=== PATIENT | male | born 1935 | race Two or more races ===

== ENCOUNTER 2017-10-15 16:28 | Inpatient (IN) | payer MEDICARE, OTHER ==
[~2017-10-15] VITALS: Ht 167.6 cm; Wt 90.7 kg
--- NOTE | 2017-10-15 16:45 | NUR ---
BBPA FROM [facility]: ABDOMINAL WALL AND RIGHT ELBOW CELLULITIS. NOTED RASHES ON LOWER EXTREMITIES AND TORSO. PT C/O OF ALL OVER ITCHINESS. SEEN BY MD FOR EVAL. PT AAXO3. SAFETY AND COMFORT MEASURES PROVIDED. WILL MONITOR.
--- NOTE | 2017-10-15 17:10 | NUR ---
IV ACCESS STARTED.
[2017-10-15 17:21] LABS: BASOPHILS % (AUTO) 0.4 % (0.0-2.0); EOSINOPHILS % (AUTO) 8.7 % (0.0-6.0); HEMATOCRIT 40 % (39-51); HEMOGLOBIN 13.2 g/dL (13.5-17.5); LYMPHOCYTES # (AUTO) 1.1 /CMM (0.8-4.8); LYMPHOCYTES % (AUTO) 17.5 % (20.0-44.0); MEAN CORPUSCULAR HEMOGLOBIN 32 PG (26.0-33.0); MEAN CORPUSCULAR HGB CONC 33 g/dl (31.0-36.0); MEAN CORPUSCULAR VOLUME 98 fL (80-96); MONOCYTES # (AUTO) 0.8 /CMM (0.1-1.30); MONOCYTES % (AUTO) 12.1 % (2.0-12.0); NEUTROPHILS # (AUTO) 3.9 /CMM (1.8-8.9); NEUTROPHILS % (AUTO) 61.3 % (43.0-81.0); PLATELET COUNT (AUTO) 92 /CMM (150-450); RDW COEFFICIENT OF VARIATION 14.4 (11.5-15.0); RED BLOOD CELL COUNT(AUTO) 4.09 MIL/uL (4.5-6.0); WHITE BLOOD COUNT (AUTO) 6.4 K/uL (4.3-11.0)
[2017-10-15 17:48] LABS: BAND % (MANUAL) 1 % (0.0-5.0); EOSINOPHILS % (MANUAL) 12 % (0-4); LYMPHOCYTES % (MANUAL) 23 % (16-48); MONOCYTES % (MANUAL) 10 % (0-11.0); NEUTROPHILS % (MANUAL) 54 (42-76)
--- NOTE | 2017-10-15 18:05 | NUR ---
URINE SAMPLE OBTAINED AND SENT.
[2017-10-15 18:14] LABS: ALANINE AMINOTRANSFERASE 27 U/L (12-78); ALBUMIN 2.5 g/dL (3.4-5.0); ALKALINE PHOSPHATASE 198 U/L (46-116); ASPARTATE AMINOTRANSFERASE 30 U/L (15-37); BILIRUBIN,DIRECT 0.2 mg/dL (0.0-0.2); BILIRUBIN,TOTAL 0.5 mg/dL (0.2-1.0); CALCIUM, SERUM 8.5 mg/dL (8.5-10.1); CARBON DIOXIDE 27 mmol/L (21-32); CHLORIDE 105 mmol/L (98-107); CREATININE 1.3 mg/dL (0.6-1.3); GLUCOSE 164 mg/dL (74-106); POTASSIUM 3.9 mmol/L (3.5-5.1); SODIUM SERUM 137 mmol/L (136-145); UREA NITROGEN, BLOOD 19 mg/dL (7-18)
[2017-10-15 18:19] LABS: APPEARANCE,URINE SL CLOUDY (CLEAR); BILIRUBIN,URINE NEGATIVE (NEGATIVE); BLOOD, URINE NEGATIVE Ery/uL (NEGATIVE); COLOR,URINE YELLOW (YELLOW); KETONES,URINE TRACE (NEGATIVE); LEUKOCYTE ESTERASE ,URINE NEGATIVE (NEGATIVE); NITRITE, URINE NEGATIVE (NEGATIVE); PROTEIN,URINE NEGATIVE (NEGATIVE); UGLUCOSE NEGATIVE (NEGATIVE)
[2017-10-15 18:28] LABS: RBC,URINE 0-2 /HPF (0-2); SQUAMOUS EPITHELIAL CELL,UR Rare /HPF (None Seen); WBC,URINE 0-2 /HPF (0-3)
[2017-10-15 18:29] LABS: BACTERIA,URINE None seen /HPF (None Seen)
[2017-10-15] MEDS ORDERED: cetrizine 10 MG TABLET PO ONE (18:30)
[2017-10-15] MEDS ORDERED: cetrizine 10 MG TABLET ONE (18:35)
--- NOTE | 2017-10-15 19:13 | NUR ---
BED 202
--- NOTE | 2017-10-15 19:14 | NUR ---
Recieved report from RANDALL Fox. Pt. stable condition. nad. will continue to monitor. safety measures in place. call light within reach.
--- NOTE | 2017-10-15 19:37 | NUR ---
REPORT GIVEN TO GORGE LOPEZ.
--- NOTE | 2017-10-15 19:39 | NUR ---
PT TRANSP. BY EMT. STABLE CONDITION. AA/OX4. NAD. VSS.
[2017-10-15 20:00] VITALS: BP 166/72
--- NOTE | 2017-10-15 20:00 | NUR ---
MS RN NOTES ADMITTED FROM ER THIS 82 YO MALE,A RESIDENT OF [facility],ALERT,ORIENTED X3,SPEAK [place] ONLY,UNDER THE SERVICE OF [facility].ADMITTED FOR PRURITUS,GENERALIZED IN NATURE.WITH SALINE LOC LEFT AC INTACT AND PATENT.NOTED MULTIPLE SKIN DISCOLORATION ON HIS BODY,RASHES ON ABDOMEN,LEFT INNER THIGH AND BACK.PER FACILITY,PATIENT IS AMBULATORY AND EAT REGULAR FOOD.NO HX OF ASPIRATION.FALL PRECAUTION OBSERVED.BED ON LOWEST POSITION AND LOCKED,SIDE RAIL UP X2,CALL LIGHT IN REACH,NEEDS ANTICIPATED.
[2017-10-15 20:45] VITALS: BP 166/72
[2017-10-15] MEDS ORDERED: [UNRECOGNIZED DRUG - OTHER] (21:30)
[2017-10-15] MEDS ORDERED: OMEG1CAP55 PO (21:30)
[2017-10-15] MEDS ORDERED: LACT10SO PO (21:30)
[2017-10-15] MEDS ORDERED: FURO-145 PO (21:30)
[2017-10-15] MEDS ORDERED: PANT40TA2 PO (21:30)
[2017-10-15] MEDS ORDERED: CARV6.25 PO (21:30)
[2017-10-15] MEDS ORDERED: TIOT18CA3 INH (21:30)
[2017-10-15] MEDS ORDERED: MAGNESIUM HYDROXIDE 30 ML UDC PO PRN (22:30)
[2017-10-15] MEDS ORDERED: ZOLPIDEM TARTRATE 5 MG TABLET PO PRN (22:30)
[2017-10-15] MEDS ORDERED: HYDROCODONE/APAP 5/325MG 1 EACH TABLET PO PRN (22:30)
[2017-10-15] MEDS ORDERED: Z GUARD REMEDY 2 OZ OINT TP PRN (22:30)
[2017-10-15] MEDS ORDERED: ACETAMINOPHEN 325 MG TABLET PO PRN (22:30)
[2017-10-15] MEDS ORDERED: LACTULOSE 10 G/15 ML UDC (PYXIS) PO PRN (22:30)
[2017-10-15] MEDS ORDERED: ONDANSETRON HCL/PF 4 MG/2 ML VIAL IVP PRN (22:30)
[2017-10-15] MEDS ORDERED: ENOXAPARIN SODIUM 40 MG/0.4 ML DISP.SYRIN SQ SCH (22:30)
[2017-10-15] MEDS: FAMOTIDINE/PF INJ 20 MG/2 ML VIAL IV SCH (22:45)
[2017-10-15] MEDS: diphenhydrAMINE HCL 50 MG/ML VIAL IV SCH (22:45)
--- NOTE | 2017-10-15 22:45 | NUR ---
MS RN NOTES STARTED ON BENADRYL 25MG IV FOR ITCHINESS AND PEPCID 20MG IV HISTAMINE ANTAGONIST
--- NOTE | 2017-10-15 22:46 | NUR ---
MS RN NOTES STARTED ON LOVENOX 40MG SQ FOR DVT PROPHYLAXIS.
--- NOTE | 2017-10-16 02:00 | NUR ---
MS RN NOTES SLEEPING,KEPT WARM AND COMFORTABLE.
[2017-10-16] MEDS: diphenhydrAMINE HCL 50 MG/ML VIAL IV SCH ×4 (05:22→21:35)
--- NOTE | 2017-10-16 06:23 | NUR ---
MS RN NOTES SLEPT WELL WITH BENADRYL,KEPT WARM AND COMFORTABLE.A/O X2-3,IN NO ACUTE DISTRESS.WILL ENDORSE TO NILSA PEREIRA FOR KIT.
--- NOTE | 2017-10-16 07:16 | NUR ---
MS RN OPENING NOTES RECEIVED PT AWAKE IN BED IN NO ACUTE SIGNS OF DISTRESS. HOB ELEVATED. A/O X3. MALTESE SPEAKING, DENIES ANY PAIN OR DISCOMFORTS AT THIS TIME. ON ROOM AIR, BREATHING EVEN AND UNLABORED. IV ACCESS ON LEFT AC INTACT AND PATENT. MULTIPLE SKIN DISCOLORATION ON BODY, RASHES ON ABDOMEN, LEFT INNER THIGH AND BACK PERSIST. SAFET MEASURES IN PLACE. BED ON LOWEST POSITION AND LOCKED, SIDE-RAILS UP X2. CALL LIGHT IN REACH. WILL CONTINUE TO MONITOR PT ACCORDINGLY.
[2017-10-16 08:00] VITALS: BP 140/64
[2017-10-16 08:14] LABS: BASOPHILS % (AUTO) 0.5 % (0.0-2.0); EOSINOPHILS % (AUTO) 10.6 % (0.0-6.0); HEMATOCRIT 38 % (39-51); HEMOGLOBIN 12.5 g/dL (13.5-17.5); LYMPHOCYTES # (AUTO) 1.2 /CMM (0.8-4.8); LYMPHOCYTES % (AUTO) 24.6 % (20.0-44.0); MEAN CORPUSCULAR HEMOGLOBIN 33 PG (26.0-33.0); MEAN CORPUSCULAR HGB CONC 33 g/dl (31.0-36.0); MEAN CORPUSCULAR VOLUME 98 fL (80-96); MONOCYTES # (AUTO) 0.6 /CMM (0.1-1.30); MONOCYTES % (AUTO) 12.7 % (2.0-12.0); NEUTROPHILS # (AUTO) 2.6 /CMM (1.8-8.9); NEUTROPHILS % (AUTO) 51.6 % (43.0-81.0); PLATELET COUNT (AUTO) 73 /CMM (150-450); RDW COEFFICIENT OF VARIATION 14.3 (11.5-15.0); RED BLOOD CELL COUNT(AUTO) 3.84 MIL/uL (4.5-6.0)
[2017-10-16 08:29] LABS: CALCIUM, SERUM 8.5 mg/dL (8.5-10.1); CARBON DIOXIDE 24 mmol/L (21-32); CHLORIDE 108 mmol/L (98-107); GLUCOSE 84 mg/dL (74-106); MAGNESIUM 2.3 mg/dL (1.8-2.4); PHOSPHORUS 3.7 mg/dL (2.5-4.9); POTASSIUM 4.1 mmol/L (3.5-5.1); SODIUM SERUM 140 mmol/L (136-145); UREA NITROGEN, BLOOD 18 mg/dL (7-18)
--- NOTE | 2017-10-16 08:31 | NUR ---
WOUND CARE CONSULT WOUND CARE RECEIVED CONSULT FOR MULTIPLE RASHES. WOUND CARE WILL DEFER THIS TO PRIMARY MEDICAL TEAM AT THIS TIME. PATIENT WITH CURRENT VANESSA AT 19. DISCUSSED WITH NURSING STAFF. WILL SEE PRN.
[2017-10-16] MEDS: MULTIVITAMINS,THERAGRAN 1 UDTAB TABLET PO SCH (08:56)
[2017-10-16] MEDS: PANTOPRAZOLE 40 MG TABLET.DR PO SCH (08:56)
[2017-10-16] MEDS: FAMOTIDINE/PF INJ 20 MG/2 ML VIAL IV SCH ×2 (08:56→21:35)
[2017-10-16] MEDS: FUROSEMIDE 20 MG TABLET PO SCH ×2 (08:56→17:45)
[2017-10-16] MEDS: CARVEDILOL 6.25 MG TABLET PO SCH ×2 (08:57→21:36)
[2017-10-16 09:50] LABS: CHOLESTEROL 231 mg/dL (<200); HDL CHOLESTEROL 53 mg/dL (40-60); LDL 159 mg/dL (0-99); TRIGLYCERIDES 67 mg/dL (30-150)
[2017-10-16 10:29] LABS: LYMPHOCYTES % (MANUAL) 28 % (16-48); MONOCYTES % (MANUAL) 11 % (0-11.0); NEUTROPHILS % (MANUAL) 53 (42-76)
[2017-10-16 10:30] LABS: EOSINOPHILS % (MANUAL) 8 % (0-4)
[2017-10-16] MEDS: methylPREDNISolone SOD SUCC 40 MG/ML VIAL IV SCH (11:32)
--- NOTE | 2017-10-16 11:38 | NUR ---
RN NOTES PATIENT SEEN AND EVALUATED BY DR IQBAL, ORDER TO GIVE SOLOMEDROL 40MG IV, DC LOVENOX FOR NOW, TO PUT B/L SCD ON PT'S BLE AND BLOOD WORKS TOMORROW. WILL CONTINUE TO MONITOR.
--- NOTE | 2017-10-16 11:39 | NUR ---
RN NOTES BRIDAL SALES CONSULTANT ESTELA AGUERO CAME AND ASSESSED PT'S SKIN. NO ORDER MADE AT THIS TIME.
[2017-10-16 16:00] VITALS: BP 138/69
--- NOTE | 2017-10-16 18:27 | NUR ---
MS RN CLOSING NOTES PATIENT AWAKE AND RESTING IN BED AT MODERATE HIGH BACKREST POSITION. A/O X3. [place] SPEAKING. PLEASANT AND COMPLIANT. PT TOLERATING ROOM AIR WITH NO SOB NOTED. IV ACCESS ON LEFT AC INTACT AND PATENT, FLUSHES WELL. MULTIPLE SKIN DISCOLORATION ON BODY, RASHES ON ABDOMEN, LEFT INNER THIGH AND BACK PERSIST. ALL SAFETY MEASURES KEPT IN PLACE. BED ON LOWEST POSITION AND LOCKED, SIDE-RAILS UP X2. CALL LIGHT IN REACH. ALL NEEDS AND CARE ATTENDED WELL. WILL ENDORSE TO [facility] NURSE FOR KIT.
--- NOTE | 2017-10-16 19:22 | NUR ---
RN NOTES I WAS CALLED BY PHARMACY INFORMATICS MANAGER ASSIGNED TO PT THAT PT'S IV ACCESS ON LEFT AC WITH SMALL AMOUNT OF BLOOD LEAKING. TRIED TO INSERT LINE AT LEFT FOREARM BUT SOON I INSERT THE NEEDLE, PT WENT BRUISE ABOUT 10CM X 7CM WITHOUT ACTIVE BLEEDING. TOOK PHOTO AND FILED ON CHART. DR IQBAL MADE AWARE AND ASKED WHETHER PT IS ON BLOOD THINNER, I SAID THAT LOVENOX WAS DC'D THIS MORNING. NO NEW ORDER MADE AT THIS TIME. WILL CONTINUE TO MONITOR
--- NOTE | 2017-10-16 19:50 | NUR ---
RN OPENING NOTES RECEIVED REPORT FROM NILSA DAVENPORT RN. FOUND Pt AWAKE, RESTING IN BED, WITH NO S/S OF ACUTE DISTRESS OR SOB NOTED. Pt IS A/OX3, GUINEAN SPEAKING. IV ACCESS ON LAC #20G, SL. ISSAC ASH ATTEMPTED TO START A NEW IV ON Pt's LT ARM, BUT Pt's ARM STARTED TO SHOW S/S OF HEMATOMA. RANDALL ASH STOPPED ATTEMPT, & NOTIFIED DR. IQBAL. IS AWARE; LOVENOX IS D/C'd AND WILL CONTINUE TO MONITOR Pt's ARM. PICTURES TAKEN AND PLACED IN CHART. SAFETY MEASURES IN PLACE. BED LOW, LOCKED, HOB ELEVATED, SIDE RAILS UP, CALL LIGHT AND BEDSIDE TABLE WITHIN REACH. WILL CONTINUE TO MONITOR Pt THROUGHOUT THE NIGHT FOR SAFETY.
[2017-10-16 20:00] VITALS: BP 122/54
[2017-10-16] MEDS ORDERED: ENOXAPARIN SODIUM 40 MG/0.4 ML DISP.SYRIN SQ SCH (21:00)
[2017-10-17] MEDS: diphenhydrAMINE HCL 50 MG/ML VIAL IV SCH ×4 (05:27→22:09)
[2017-10-17 06:04] LABS: BASOPHILS % (AUTO) 0.2 % (0.0-2.0); EOSINOPHILS % (AUTO) 0.1 % (0.0-6.0); HEMATOCRIT 38 % (39-51); HEMOGLOBIN 12.4 g/dL (13.5-17.5); LYMPHOCYTES # (AUTO) 0.7 /CMM (0.8-4.8); LYMPHOCYTES % (AUTO) 10.5 % (20.0-44.0); MEAN CORPUSCULAR HEMOGLOBIN 32 PG (26.0-33.0); MEAN CORPUSCULAR HGB CONC 33 g/dl (31.0-36.0); MEAN CORPUSCULAR VOLUME 97 fL (80-96); MONOCYTES # (AUTO) 0.5 /CMM (0.1-1.30); MONOCYTES % (AUTO) 8.1 % (2.0-12.0); NEUTROPHILS # (AUTO) 5.4 /CMM (1.8-8.9); NEUTROPHILS % (AUTO) 81.1 % (43.0-81.0); PLATELET COUNT (AUTO) 75 /CMM (150-450); RDW COEFFICIENT OF VARIATION 14.2 (11.5-15.0); RED BLOOD CELL COUNT(AUTO) 3.87 MIL/uL (4.5-6.0); WHITE BLOOD COUNT (AUTO) 6.7 K/uL (4.3-11.0)
[2017-10-17 06:06] LABS: GAMMA GLUTAMYL TRANSFERASE 403 U/L (5-85)
[2017-10-17 06:07] LABS: CALCIUM, SERUM 8.3 mg/dL (8.5-10.1); CARBON DIOXIDE 24 mmol/L (21-32); CHLORIDE 106 mmol/L (98-107); CREATININE 1.1 mg/dL (0.6-1.3); GLUCOSE 116 mg/dL (74-106); POTASSIUM 4.3 mmol/L (3.5-5.1); SODIUM SERUM 136 mmol/L (136-145); UREA NITROGEN, BLOOD 19 mg/dL (7-18)
--- NOTE | 2017-10-17 06:38 | NUR ---
RN CLOSING NOTES NO SIGNIFICANT CHANGES IN Pt's CONDITION. Pt REMAINS IN STABLE CONDITION AT THIS TIME. NO S/S OF ACUTE DISTRESS OR SOB NOTED DURING THE NIGHT. ALL NEEDS MET AND ATTENDED TO. SAFETY MEASURES IN PLACE. BED LOW, LOCKED, HOB ELEVATED, SIDE RAILS UP, CALL LIGHT AND BEDSIDE TABLE WITHIN REACH. WILL ENDORSE TO DAYSHIFT RN FOR Pt's KIT.
--- NOTE | 2017-10-17 07:36 | NUR ---
MS RN OPENING NOTE RECEIVED PATIENT IN BED, SLEEPING, EASILY AROUSED WITH VERBAL STIMULI, ORIENTED X3. ON ROOM AIR TOLERATING WELL. IN NO APPARENT DISTRESS OR DISCOMFORT AT THIS TIME. RESPIRATIONS EVEN AND UNLABORED. ABLE TO COMMUNICATE NEEDS. PATIENT WITH LAC #20 IVC SL. PATENT AND INTACT. PATIENT IS WITH BRP, AND DIAPER AT TIMES. ALL NEEDS ATTENDED, KEPT CLEAN AND COMFORTABLE, SAFETY MEASURES IN PLACE, BED IN LOW LOCKED POSITION, SIDE RAILS UP X2, CALL LIGHT WITHIN EASY REACH. WILL CONTINUE TO MONITOR.
[2017-10-17 07:59] VITALS: BP 140/55
[2017-10-17 08:00] VITALS: BP 140/55
[2017-10-17] MEDS: FUROSEMIDE 20 MG TABLET PO SCH ×2 (08:20→16:20)
[2017-10-17] MEDS: MULTIVITAMINS,THERAGRAN 1 UDTAB TABLET PO SCH (08:20)
[2017-10-17] MEDS: PANTOPRAZOLE 40 MG TABLET.DR PO SCH (08:20)
[2017-10-17] MEDS: CARVEDILOL 6.25 MG TABLET PO SCH ×2 (08:28→21:17)
[2017-10-17 08:52] LABS: BAND % (MANUAL) 3 % (0.0-5.0); LYMPHOCYTES % (MANUAL) 7 % (16-48); MONOCYTES % (MANUAL) 4 % (0-11.0); NEUTROPHILS % (MANUAL) 86 (42-76)
[2017-10-17] MEDS: FAMOTIDINE/PF INJ 20 MG/2 ML VIAL IV SCH ×2 (09:24→21:17)
[2017-10-17] MEDS: methylPREDNISolone SOD SUCC 40 MG/ML VIAL IV SCH (09:24)
[2017-10-17 16:00] VITALS: BP 143/57
--- NOTE | 2017-10-17 18:35 | NUR ---
MS RN CLOSING NOTE PATIENT IN BED, SLEEPING, EASILY AROUSED WITH VERBAL STIMULI, ORIENTED X3. ON ROOM AIR TOLERATING WELL. IN NO APPARENT DISTRESS OR DISCOMFORT AT THIS TIME. RESPIRATIONS EVEN AND UNLABORED. ABLE TO COMMUNICATE NEEDS IN LIB[place]. PATIENT WITH RIGHT HAND 24G. IV ACCESS, PATENT AND INTACT. PATIENT IS WITH BRP, AND DIAPER AT TIMES. STEADY WHEN AMBULATING. ALL NEEDS ATTENDED, KEPT CLEAN AND COMFORTABLE, SAFETY MEASURES IN PLACE, BED IN LOW LOCKED POSITION, SIDE RAILS UP X2, CALL LIGHT WITHIN EASY REACH, WILL ENDORSE TO PM NURSE FOR KIT.
--- NOTE | 2017-10-17 19:18 | NUR ---
ms/rn opening notes PATIENT IN BED, AWAKE, ABLE TO CHANGE POSITION AND REQUESTED FOR FOOD TO EAT, WAS NPO DUE TO PROCEDURE US OF ABDOMEN, RESULT RECEIVED,NO OBSTRUCTION, ONLY INFILTRATED FATTY LIVER, SKIN WARM TO TOUCH WITH RASHES AROUNG BODY, RESPIRATIONS EVEN AND UNLABORED, CALL LIGHTS WITHIN REACH, BED IN LOCK POSITION WILL MONITOR,
[2017-10-17 19:55] VITALS: BP 136/58
[2017-10-17 20:00] VITALS: BP 136/58
[2017-10-18] MEDS: diphenhydrAMINE HCL 50 MG/ML VIAL IV SCH ×3 (04:39→16:30)
[2017-10-18 05:44] LABS: BASOPHILS % (AUTO) 0.6 % (0.0-2.0); EOSINOPHILS % (AUTO) 0.6 % (0.0-6.0); HEMATOCRIT 37 % (39-51); HEMOGLOBIN 12.4 g/dL (13.5-17.5); LYMPHOCYTES % (AUTO) 13.3 % (20.0-44.0); MEAN CORPUSCULAR HEMOGLOBIN 33 PG (26.0-33.0); MEAN CORPUSCULAR HGB CONC 34 g/dl (31.0-36.0); MEAN CORPUSCULAR VOLUME 98 fL (80-96); MONOCYTES # (AUTO) 0.8 /CMM (0.1-1.30); MONOCYTES % (AUTO) 10.2 % (2.0-12.0); NEUTROPHILS # (AUTO) 5.7 /CMM (1.8-8.9); NEUTROPHILS % (AUTO) 75.3 % (43.0-81.0); PLATELET COUNT (AUTO) 80 /CMM (150-450); RDW COEFFICIENT OF VARIATION 14.4 (11.5-15.0); RED BLOOD CELL COUNT(AUTO) 3.81 MIL/uL (4.5-6.0); WHITE BLOOD COUNT (AUTO) 7.6 K/uL (4.3-11.0)
[2017-10-18 05:59] LABS: CALCIUM, SERUM 8.4 mg/dL (8.5-10.1); CARBON DIOXIDE 26 mmol/L (21-32); CHLORIDE 107 mmol/L (98-107); CREATININE 0.9 mg/dL (0.6-1.3); GLUCOSE 84 mg/dL (74-106); SODIUM SERUM 140 mmol/L (136-145); UREA NITROGEN, BLOOD 22 mg/dL (7-18)
--- NOTE | 2017-10-18 06:27 | NUR ---
202-1 MS/RN NOTES PATIENT ABLE TO SLEEP DURING THE NIGHT, ALERT, X3, RESPIRATIONS EVEN AND UNLABORED, SKIN WARM TO TOUCH, IV BENADRYL GIVEN PER ROUTINE ORDER FOR ITCH, WILL ENDORSE TO AM RN FOR KIT. CALL LIGHTS WITHIN REACH, BED IN LOCK POSITION.
[2017-10-18 06:42] LABS: LYMPHOCYTES % (MANUAL) 15 % (16-48); NEUTROPHILS % (MANUAL) 76 (42-76)
[2017-10-18 06:43] LABS: MONOCYTES % (MANUAL) 9 % (0-11.0)
--- NOTE | 2017-10-18 07:27 | NUR ---
MS RN OPENING NOTE RECEIVED PATIENT IN BED, SLEEPING, EASILY AROUSED WITH VERBAL STIMULI, ORIENTED X3. ON ROOM AIR TOLERATING WELL. IN NO APPARENT DISTRESS OR DISCOMFORT AT THIS TIME. RESPIRATIONS EVEN AND UNLABORED. ABLE TO COMMUNICATE NEEDS, [place] SPEAKING. PATIENT WITH RIGHT HAND 24G IVC SL. PATENT AND INTACT. PATIENT IS WITH BRP, AND DIAPER AT TIMES. ALL NEEDS ATTENDED, KEPT CLEAN AND COMFORTABLE, SAFETY MEASURES IN PLACE, BED IN LOW LOCKED POSITION, SIDE RAILS UP X2, CALL LIGHT WITHIN EASY REACH. WILL CONTINUE TO MONITOR.
[2017-10-18 07:54] VITALS: BP 152/63
[2017-10-18] MEDS: IPRATROPIUM NEB FS 0.5 MG/2.5 ML AMPUL.NEB NEB SCH ×2 (07:55→08:14)
[2017-10-18 08:00] VITALS: BP 152/63
[2017-10-18 08:10] VITALS: BP 152/63
[2017-10-18] MEDS: PANTOPRAZOLE 40 MG TABLET.DR PO SCH (08:10)
[2017-10-18] MEDS: methylPREDNISolone SOD SUCC 40 MG/ML VIAL IV SCH (08:10)
[2017-10-18] MEDS: CARVEDILOL 6.25 MG TABLET PO SCH (08:10)
[2017-10-18] MEDS: FUROSEMIDE 20 MG TABLET PO SCH ×2 (08:10→16:21)
[2017-10-18] MEDS: MULTIVITAMINS,THERAGRAN 1 UDTAB TABLET PO SCH (08:10)
[2017-10-18] MEDS: FAMOTIDINE/PF INJ 20 MG/2 ML VIAL IV SCH (08:10)
[2017-10-18] MEDS ORDERED: PRED20TA PO (11:15)
--- NOTE | 2017-10-18 19:40 | NUR ---
MS MOTOR MECHANIC NOTE RECEIVED ORDER FOR DISCHARGE. PATIENT IS TO BE TRANSFERRED TO [facility]. SPOKE TO FRANCINE, NURSING PROCUREMENT OFFICER TO GIVE REPORT. PATIENT IS ALERT ORIENTED X3, NO CHANGES IN CONDITION, PATIENT IS STABLE. VITAL SIGNS STABLE. DISCHARGE PREPATED VIA EXITCARE AND EXPLAINED TO THE PATIENT. DISCHARGE INSTRUCTIONS GIVEN, SIGNED, COPIES PLACED IN THE CHART. PHOTOS TAKEN PLACED IN CHART. VALUABLES CHECKED AND ACCOUNTED FOR. FAMILY NOTIFIED. IV ACCESS REMOVED, TIP PATENT AND INTACT. ID BAND REMOVED. PATIENT WAS PICKED UP BY AMBULANCE AND LEFT THE UNIT AT 1835.
== END 2017-10-18 18:30 | DRG 607 ==
LOC: ER 16:30 → MEDSG2 19:23
PROVIDERS: ADMIT Nurse Practitioner Acute Care; ATTEND Nurse Practitioner Acute Care
DX: L95.9 Vasculitis limited to the skin, unspecified (principal); E44.0 Moderate protein-calorie malnutrition; D69.6 Thrombocytopenia, unspecified; Z68.32 Body mass index [BMI] 32.0-32.9, adult; I16.0 Hypertensive urgency; E66.01 Morbid (severe) obesity due to excess calories; I10 Essential (primary) hypertension; K74.60 Unspecified cirrhosis of liver; F10.10 Alcohol abuse, uncomplicated; Y90.9 Presence of alcohol in blood, level not specified; Z66 Do not resuscitate; Z88.0 Allergy status to penicillin; J32.9 Chronic sinusitis, unspecified; Z98.890 Other specified postprocedural states; Z79.899 Other long term (current) drug therapy; L85.3 Xerosis cutis; L29.9 Pruritus, unspecified; J44.9 Chronic obstructive pulmonary disease, unspecified; K76.0 Fatty (change of) liver, not elsewhere classified
CPT/HCPCS: 36415; 73080-TC; 76700-TC; 80048-TC; 80061-TC; 80076-TC; 81000-TC; 82977-TC; 83605-TC; 83735-TC; 84100-TC; 85025-TC; 85652-TC; 86140-TC; 87040-TC; 87081-TC; A4606; J1200; J1650; J2920; J3490; Z7610

== ENCOUNTER 2018-03-20 01:39 | Inpatient (IN) | payer MEDICARE, MEDICAID ==
[~2018-03-20] VITALS: Ht 157.5 cm; Wt 82.6 kg
[~2018-03-20 01:39] MED LIST: CARV6.25 PO; FURO-145 PO; LACT10SO PO; OMEG1CAP55 PO; PANT40TA2 PO; PRED20TA PO; TIOT18CA3 INH; [UNRECOGNIZED DRUG - OTHER]
[2018-03-20] MEDS ORDERED: OMEG1CAP40 PO (02:15)
[2018-03-20] MEDS ORDERED: TIOT18CA3 IH (02:15)
[2018-03-20] MEDS ORDERED: PANT40TA2 PO (02:15)
[2018-03-20] MEDS ORDERED: LACT10SO PO (02:15)
[2018-03-20] MEDS ORDERED: MULT-659 PO (02:15)
[2018-03-20] MEDS ORDERED: FURO-145 PO (02:15)
[2018-03-20] MEDS ORDERED: CARV6.25 PO (02:15)
[2018-03-20] MEDS ORDERED: ACET-2605 PO (02:15)
[2018-03-20] MEDS ORDERED: TYL2T PO (02:15)
[2018-03-20] MEDS ORDERED: HYDR-3026 PO (02:15)
[2018-03-20 02:41] LABS: BASOPHILS % (AUTO) 0.4 % (0.0-2.0); EOSINOPHILS % (AUTO) 7.1 % (0.0-6.0); HEMATOCRIT 38 % (39-51); HEMOGLOBIN 12.6 g/dL (13.5-17.5); LYMPHOCYTES % (AUTO) 16.9 % (20.0-44.0); MEAN CORPUSCULAR HGB CONC 33 g/dl (31.0-36.0); MEAN CORPUSCULAR VOLUME 95 fL (80-96); MONOCYTES # (AUTO) 0.9 /CMM (0.1-1.30); NEUTROPHILS # (AUTO) 3.8 /CMM (1.8-8.9); NEUTROPHILS % (AUTO) 61.6 % (43.0-81.0); PLATELET COUNT (AUTO) 94 /CMM (150-450); RED BLOOD CELL COUNT(AUTO) 4.02 MIL/uL (4.5-6.0); WHITE BLOOD COUNT (AUTO) 6.2 K/uL (4.3-11.0)
[2018-03-20 02:56] LABS: CALCIUM, SERUM 7.9 mg/dL (8.5-10.1); CARBON DIOXIDE 29 mmol/L (21-32); CHLORIDE 105 mmol/L (98-107); GLUCOSE 103 mg/dL (74-106); POTASSIUM 3.5 mmol/L (3.5-5.1); SODIUM SERUM 138 mmol/L (136-145); UREA NITROGEN, BLOOD 15 mg/dL (7-18)
[2018-03-20 03:15] LABS: EOSINOPHILS % (MANUAL) 13 % (0-4); LYMPHOCYTES % (MANUAL) 9 % (16-48); MONOCYTES % (MANUAL) 10 % (0-11.0); NEUTROPHILS % (MANUAL) 68 (42-76)
[2018-03-20] MEDS ORDERED: hydrOXYzine 10 MG TABLET PO PRN (06:00)
[2018-03-20] MEDS ORDERED: ACETAMINOPHEN 325 MG TABLET PO PRN (06:00)
[2018-03-20 07:57] LABS: ALBUMIN 2.2 g/dL (3.4-5.0); BILIRUBIN,DIRECT 0.2 mg/dL (0.0-0.2); BILIRUBIN,TOTAL 0.8 mg/dL (0.2-1.0); TOTAL PROTEIN, SERUM 5.9 g/dL (6.4-8.2)
[2018-03-20 08:00] VITALS: BP 144/73
[2018-03-20] MEDS ORDERED: FATTY ACIDS PO SCH (09:00)
[2018-03-20] MEDS ORDERED: FISH OIL PO SCH (09:00)
[2018-03-20] MEDS ORDERED: OMEGA PO SCH (09:00)
[2018-03-20] MEDS: LACTULOSE 10 G/15 ML UDC (PYXIS) PO SCH (10:03)
[2018-03-20] MEDS: FUROSEMIDE 20 MG TABLET PO SCH ×2 (10:04→17:21)
[2018-03-20] MEDS: MULTIVIT W/MINERALS 1 TAB TABLET PO SCH (10:04)
[2018-03-20] MEDS: predniSONE 20 MG TABLET PO SCH (10:04)
[2018-03-20] MEDS: CARVEDILOL 6.25 MG TABLET PO SCH ×2 (10:04→17:22)
[2018-03-20] MEDS: PANTOPRAZOLE 40 MG TABLET.DR PO SCH (10:04)
[2018-03-20 10:07] VITALS: BP 144/73
[2018-03-20 16:00] VITALS: BP 120/58
[2018-03-20] MEDS ORDERED: IOHEXOL-300 100 ML VIAL IV ONE (17:10)
[2018-03-20] MEDS ORDERED: IV NS 0.9% 250 ML IV ONE (17:10)
[2018-03-20] MEDS ORDERED: CT SWABBABLE VALVE TRANS SET 1 EA INFUS.SET MC ONE (17:10)
[2018-03-20] MEDS: ACETYLCYSTEINE 10% 3,000 MG/30 ML VIAL PO SCH (17:21)
[2018-03-20 17:42] VITALS: BP 185/79
[2018-03-20 18:20] VITALS: BP 133/67
[2018-03-20 20:00] VITALS: BP 147/74
[2018-03-20 21:05] LABS: APPEARANCE,URINE CLEAR (CLEAR); BILIRUBIN,URINE NEGATIVE (NEGATIVE); BLOOD, URINE NEGATIVE Ery/uL (NEGATIVE); COLOR,URINE YELLOW (YELLOW); KETONES,URINE NEGATIVE (NEGATIVE); LEUKOCYTE ESTERASE ,URINE NEGATIVE (NEGATIVE); NITRITE, URINE NEGATIVE (NEGATIVE); PROTEIN,URINE NEGATIVE (NEGATIVE); UGLUCOSE NEGATIVE (NEGATIVE)
[2018-03-20 21:21] LABS: BACTERIA,URINE None seen /HPF (None Seen); RBC,URINE 0-2 /HPF (0-2); SQUAMOUS EPITHELIAL CELL,UR Few /HPF (None Seen); WBC,URINE 0-2 /HPF (0-3)
[2018-03-21 06:28] LABS: ALANINE AMINOTRANSFERASE 26 U/L (12-78); ALBUMIN 2.3 g/dL (3.4-5.0); ALKALINE PHOSPHATASE 183 U/L (46-116); ASPARTATE AMINOTRANSFERASE 30 U/L (15-37); B-TYPE NATRIURETIC PEPTIDE 1157 PG/ML (0-125); BILIRUBIN,TOTAL 0.5 mg/dL (0.2-1.0); CALCIUM, SERUM 8.6 mg/dL (8.5-10.1); CARBON DIOXIDE 24 mmol/L (21-32); CHLORIDE 104 mmol/L (98-107); CREATININE 1.1 mg/dL (0.6-1.3); GLUCOSE 97 mg/dL (74-106); IRON, SERUM 79 ug/dl (50-175); MAGNESIUM 2.2 mg/dL (1.8-2.4); PHOSPHORUS 3.6 mg/dL (2.5-4.9); POTASSIUM 4.1 mmol/L (3.5-5.1); SODIUM SERUM 137 mmol/L (136-145); TOTAL IRON BINDING CAPACITY 138 ug/dl (250-450); TOTAL PROTEIN, SERUM 6.1 g/dL (6.4-8.2); UREA NITROGEN, BLOOD 19 mg/dL (7-18)
[2018-03-21 06:36] LABS: FERRITIN 311 ng/mL (8-388); THYROID STIMULATING HORMONE 0.658 uIU/mL (0.358-3.74)
[2018-03-21 06:50] LABS: BASOPHILS % (AUTO) 0.1 % (0.0-2.0); EOSINOPHILS % (AUTO) 0.9 % (0.0-6.0); HEMATOCRIT 38 % (39-51); HEMOGLOBIN 12.6 g/dL (13.5-17.5); LYMPHOCYTES # (AUTO) 1.1 /CMM (0.8-4.8); MEAN CORPUSCULAR HGB CONC 33 g/dl (31.0-36.0); MEAN CORPUSCULAR VOLUME 95 fL (80-96); MONOCYTES # (AUTO) 0.9 /CMM (0.1-1.30); MONOCYTES % (AUTO) 9.6 % (2.0-12.0); NEUTROPHILS % (AUTO) 77.4 % (43.0-81.0); PLATELET COUNT (AUTO) 98 /CMM (150-450); RED BLOOD CELL COUNT(AUTO) 3.97 MIL/uL (4.5-6.0)
[2018-03-21 08:00] VITALS: BP 124/51
[2018-03-21] MEDS: LACTULOSE 10 G/15 ML UDC (PYXIS) PO SCH (08:43)
[2018-03-21] MEDS: MULTIVIT W/MINERALS 1 TAB TABLET PO SCH (08:44)
[2018-03-21] MEDS: ACETYLCYSTEINE 10% 3,000 MG/30 ML VIAL PO SCH ×2 (08:44→17:10)
[2018-03-21] MEDS: CARVEDILOL 6.25 MG TABLET PO SCH ×2 (08:44→17:11)
[2018-03-21] MEDS: FUROSEMIDE 20 MG TABLET PO SCH ×2 (08:44→17:11)
[2018-03-21] MEDS: PANTOPRAZOLE 40 MG TABLET.DR PO SCH (08:44)
[2018-03-21] MEDS: predniSONE 20 MG TABLET PO SCH (08:47)
[2018-03-21 13:56] LABS: LYMPHOCYTES % (MANUAL) 6 % (16-48); MONOCYTES % (MANUAL) 7 % (0-11.0); MYELOCYTES % 0 % (0-0); NEUTROPHILS % (MANUAL) 87 (42-76)
[2018-03-21 16:00] VITALS: BP_SYST 109; BP_SYST 119; BP_DIAS 53
[2018-03-21 20:00] VITALS: BP 110/51
[2018-03-22 06:33] LABS: BASOPHILS % (AUTO) 0.1 % (0.0-2.0); EOSINOPHILS % (AUTO) 0.8 % (0.0-6.0); HEMATOCRIT 37 % (39-51); HEMOGLOBIN 12.1 g/dL (13.5-17.5); LYMPHOCYTES % (AUTO) 15.7 % (20.0-44.0); MEAN CORPUSCULAR HGB CONC 33 g/dl (31.0-36.0); MEAN CORPUSCULAR VOLUME 95 fL (80-96); MONOCYTES # (AUTO) 0.6 /CMM (0.1-1.30); MONOCYTES % (AUTO) 10.2 % (2.0-12.0); NEUTROPHILS # (AUTO) 4.5 /CMM (1.8-8.9); NEUTROPHILS % (AUTO) 73.2 % (43.0-81.0); PLATELET COUNT (AUTO) 90 /CMM (150-450); RED BLOOD CELL COUNT(AUTO) 3.84 MIL/uL (4.5-6.0); WHITE BLOOD COUNT (AUTO) 6.1 K/uL (4.3-11.0)
[2018-03-22 07:06] LABS: CALCIUM, SERUM 8.4 mg/dL (8.5-10.1); CARBON DIOXIDE 26 mmol/L (21-32); CHLORIDE 105 mmol/L (98-107); GLUCOSE 95 mg/dL (74-106); MAGNESIUM 2.3 mg/dL (1.8-2.4); PHOSPHORUS 3.6 mg/dL (2.5-4.9); POTASSIUM 3.8 mmol/L (3.5-5.1); SODIUM SERUM 135 mmol/L (136-145); UREA NITROGEN, BLOOD 20 mg/dL (7-18)
[2018-03-22 08:00] VITALS: BP 137/58
[2018-03-22] MEDS: LACTULOSE 10 G/15 ML UDC (PYXIS) PO SCH (09:57)
[2018-03-22] MEDS: predniSONE 20 MG TABLET PO SCH (09:58)
[2018-03-22] MEDS: MULTIVIT W/MINERALS 1 TAB TABLET PO SCH (09:58)
[2018-03-22] MEDS: CARVEDILOL 6.25 MG TABLET PO SCH ×2 (09:58→16:36)
[2018-03-22] MEDS: ACETYLCYSTEINE 10% 3,000 MG/30 ML VIAL PO SCH (09:58)
[2018-03-22] MEDS: PANTOPRAZOLE 40 MG TABLET.DR PO SCH (09:58)
[2018-03-22] MEDS: FUROSEMIDE 20 MG TABLET PO SCH ×2 (10:01→16:36)
[2018-03-22 10:12] LABS: IMMUNOGLOBULIN A, SERUM 505 mg/dL (61-437); IMMUNOGLOBULIN G, SERUM 1192 mg/dL (700-1600); IMMUNOGLOBULIN M, SERUM 65 mg/dL (15-143)
[2018-03-22 16:00] VITALS: BP 145/73
[2018-03-22] MEDS ORDERED: OXYMETAZOLINE HCL NASAL SPRAY 30 ML BOTTLE NS PRN (17:30)
[2018-03-22 20:00] VITALS: BP 139/66
[2018-03-23 06:09] LABS: *SPE A/G RATIO 0.8 (0.7-1.7); *SPE ALBUMIN 2.6 g/dL (2.9-4.4); *SPE ALPHA-1-GLOBULIN 0.3 g/dL (0.0-0.4); *SPE ALPHA-2-GLOBULIN 0.6 g/dL (0.4-1.0); *SPE BETA GLOBULIN 0.9 g/dL (0.7-1.3); *SPE GLOBULIN, TOTAL 3.1 g/dL (2.2-3.9); *SPE M-SPIKE Not Observed g/dL (Not Observed); *SPEGAMMA GLOBULIN 1.4 g/dL (0.4-1.8)
[2018-03-23 08:00] VITALS: BP 149/64
[2018-03-23] MEDS: predniSONE 20 MG TABLET PO SCH (08:11)
[2018-03-23] MEDS: LACTULOSE 10 G/15 ML UDC (PYXIS) PO SCH (08:11)
[2018-03-23] MEDS: CHLORHEXIDINE GLUCONATE 15 ML UDC MM SCH ×2 (08:11→16:26)
[2018-03-23] MEDS: PANTOPRAZOLE 40 MG TABLET.DR PO SCH (08:11)
[2018-03-23] MEDS: MULTIVIT W/MINERALS 1 TAB TABLET PO SCH (08:11)
[2018-03-23] MEDS: FUROSEMIDE 20 MG TABLET PO SCH ×2 (08:11→16:26)
[2018-03-23] MEDS: CARVEDILOL 6.25 MG TABLET PO SCH ×2 (08:12→16:26)
[2018-03-23 12:12] LABS: BASOPHILS % (AUTO) 0.1 % (0.0-2.0); EOSINOPHILS % (AUTO) 0.4 % (0.0-6.0); HEMATOCRIT 38 % (39-51); HEMOGLOBIN 12.5 g/dL (13.5-17.5); LYMPHOCYTES # (AUTO) 0.5 /CMM (0.8-4.8); LYMPHOCYTES % (AUTO) 7.9 % (20.0-44.0); MEAN CORPUSCULAR HGB CONC 33 g/dl (31.0-36.0); MEAN CORPUSCULAR VOLUME 96 fL (80-96); MONOCYTES # (AUTO) 0.8 /CMM (0.1-1.30); MONOCYTES % (AUTO) 11.8 % (2.0-12.0); NEUTROPHILS # (AUTO) 5.4 /CMM (1.8-8.9); NEUTROPHILS % (AUTO) 79.8 % (43.0-81.0); PLATELET COUNT (AUTO) 87 /CMM (150-450); RED BLOOD CELL COUNT(AUTO) 3.93 MIL/uL (4.5-6.0); WHITE BLOOD COUNT (AUTO) 6.8 K/uL (4.3-11.0)
[2018-03-23 16:00] VITALS: BP 126/61
[2018-03-23 16:26] VITALS: BP 126/61
== END 2018-03-23 19:01 | DRG 982 ==
LOC: ER 01:40 → MED 05:54 → MEDSG2 03-23 10:55
PROVIDERS: ADMIT Nurse Practitioner Acute Care; ATTEND Registered Nurse
PROC: 09BR0ZX Excision of Left Maxillary Sinus, Open Approach, Diagnostic (ICD-10-PCS; principal; 2018-03-22)
DX: D49.1 Neoplasm of unspecified behavior of respiratory system (principal); E44.0 Moderate protein-calorie malnutrition; D63.8 Anemia in other chronic diseases classified elsewhere; E66.01 Morbid (severe) obesity due to excess calories; Z68.33 Body mass index [BMI] 33.0-33.9, adult; R93.89 Abnormal findings on diagnostic imaging of other specified body structures; E78.5 Hyperlipidemia, unspecified; I10 Essential (primary) hypertension; J32.9 Chronic sinusitis, unspecified; J44.9 Chronic obstructive pulmonary disease, unspecified; K74.60 Unspecified cirrhosis of liver
CPT/HCPCS: 36415; 70460-TC; 70486-TC; 70487-TC; 70491-TC; 71045-TC; 71260-TC; 80048-TC; 80053-TC; 80061-TC; 80076-TC; 81000-TC; 82140-TC; 82728-TC; 82784; 83540-TC; 83735-TC; 83880; 84100-TC; 84155; 84165; 84443-TC; 85025-TC; 85610-TC; 85730-TC; 86334; 87081-TC; A4217; A6402; G0378; J7050; Q9967